=== PATIENT | female | born 1960 | race Caucasian/White ===

== ENCOUNTER 2018-06-15 07:56 | Inpatient (IN) ==
[2018-06-15] MEDS ORDERED: SODIUM CHLORIDE 0.9% 1,000 ML IV STA (08:22)
[2018-06-15] MEDS ORDERED: ONDANSETRON 4 MG/2 ML VIAL IV STA (08:22)
[2018-06-15] MEDS ORDERED: KETOROLAC 30 MG/1 ML VIAL IV STA (08:22)
[2018-06-15] MEDS ORDERED: HYDROmorphone 2 MG/1 ML VIAL IV STA ×2 (08:22→09:50)
[2018-06-15] MEDS ORDERED: AMPICILLIN/SULBACTAM 3,000 MG in SODIUM CHLORIDE 0.9% 100 ML IV STA (08:35)
[2018-06-15 08:59] LABS: Basophils # 0.1 10*3/uL (0.0-0.2); Basophils % 0.3 % (0.0-0.8); Eosinophils # 0.2 10*3/uL (0.0-0.87); Eosinophils % 0.8 % (0.00-10.9); Hematocrit 37.4 VOL% (35.7-47.0); Hemoglobin 11.7 GM/DL (12.0-16.0); Immature Granulocytes % 0.6 %; Immature Granulocytes Absolute 0.12 #; Lymphocytes # 2.3 10*3/uL (1.4-4.0); Lymphocytes % 12.1 % (21.3-54.2); Mean Corpuscular HGB Conc 31.3 GM/DL (32-36); Mean Corpuscular Hemoglobin 21 PG (27-34); Mean Corpuscular Volume 66.3 FL (87-102); Mean Platelet Volume 12.5 FL (9.6-12.0); Monocytes # 1.5 10*3/uL (0.11-0.8); Neutrophils # 14.5 10*3/uL (1.4-7.4); Neutrophils % 78.2 % (38.7-73.9); Platelet Count 239 T/CUMM (130-400); Red Blood Count 5.64 MC/CUMM (3.8-5.5); Red Cell Distribution Width 15.6 % (9.3-17.3); White Blood Count 18.6 T/CUMM (4-12)
[2018-06-15 09:12] LABS: Apearance,Urine Slightly Hazy (Clear); Bilirubin,Urine Negative (Negative); Blood, Urine Small mg/dL (Negative); Glucose,Urine (UA) Negative (Negative); Ketones,Urine Negative (Negative); Mucus,Urine Occasional /LPF (Occasional); Nitrite,Urine Negative (Negative); Protein,Urine Negative; RBC,Urine 11 /HPF (0-4); Squamous Epithelial Cell,Urine Occasional /HPF (0-10); Urine Color Yellow (Yellow); Urine Specific Gravity 1.016 (1.001-1.035); WBC,Urine 39 /HPF (0-6)
[2018-06-15 09:14] LABS: Hypochromasia 1+
[2018-06-15 09:15] LABS: Platelet Estimate Adequate
[2018-06-15 09:20] LABS: Calcium 8.9 MG/DL (8.5-10.1); Osmolality,Calculated 277.7 MOS/KG (273-304); Potassium 3.7 MMOL/L (3.5-5.1)
[2018-06-15 09:24] LABS: Albumin 3.9 G/DL (3.4-5.0); Bilirubin,Direct 0.35 MG/DL (0.0-0.20); Bilirubin,Indirect 1.1 MG/DL (0.0-1.0); Bilirubin,Total 1.4 MG/DL (0.2-1.0); Total Protein 7.4 G/DL (6.4-8.3)
[2018-06-15] MEDS: ONDANSETRON 4 MG/2 ML VIAL IV PRN ×2 (12:54→19:38)
[2018-06-15] MEDS: SODIUM CHLORIDE 0.9% 1,000 ML IV SCH ×2 (12:54→21:03)
[2018-06-15] MEDS: AMPICILLIN/SULBACTAM 3,000 MG in SODIUM CHLORIDE 0.9% 100 ML IV SCH ×2 (14:57→20:59)
[2018-06-15] MEDS: HYDROmorphone 2 MG/1 ML VIAL IV PRN ×2 (15:45→19:41)
[2018-06-15] MEDS: ACETAMINOPHEN 325 MG TABLET PO PRN (19:43)
[2018-06-15] MEDS: DOCUSATE SODIUM 100 MG CAPSULE PO SCH (20:56)
[2018-06-15] MEDS: TEMAZEPAM 15 MG CAPSULE PO SCH (20:56)
[2018-06-15] MEDS: NORTRIPTYLINE 10 MG CAPSULE PO SCH (20:56)
[2018-06-16] MEDS: HYDROmorphone 2 MG/1 ML VIAL IV PRN ×3 (01:18→20:24)
[2018-06-16] MEDS: ONDANSETRON 4 MG/2 ML VIAL IV PRN ×3 (01:20→20:26)
[2018-06-16] MEDS: AMPICILLIN/SULBACTAM 3,000 MG in SODIUM CHLORIDE 0.9% 100 ML IV SCH ×4 (02:36→20:27)
[2018-06-16 04:54] LABS: Hemoglobin 8.2 GM/DL (12.0-16.0); Mean Corpuscular HGB Conc 30.4 GM/DL (32-36); Mean Corpuscular Hemoglobin 21 PG (27-34); Mean Corpuscular Volume 68.4 FL (87-102); Red Blood Count 3.95 MC/CUMM (3.8-5.5); Red Cell Distribution Width 15.1 % (9.3-17.3); White Blood Count 11.5 T/CUMM (4-12)
[2018-06-16 04:55] LABS: Basophils % 0.3 % (0.0-0.8); Eosinophils # 0.2 10*3/uL (0.0-0.87); Immature Granulocytes % 0.4 %; Immature Granulocytes Absolute 0.05 #; Lymphocytes # 1.9 10*3/uL (1.4-4.0); Lymphocytes % 16.3 % (21.3-54.2); Monocytes # 0.9 10*3/uL (0.11-0.8); Monocytes % 7.7 % (1.7-12.7); Neutrophils # 8.4 10*3/uL (1.4-7.4); Neutrophils % 73.3 % (38.7-73.9); Platelet Count 190 T/CUMM (130-400)
[2018-06-16] MEDS: SODIUM CHLORIDE 0.9% 1,000 ML IV SCH ×2 (07:53→17:04)
[2018-06-16] MEDS: ACETAMINOPHEN 325 MG TABLET PO PRN (09:10)
[2018-06-16] MEDS: LACTOBACILLUS ACIDOPHILUS/BULGARICUS CAPLET PO SCH (09:11)
[2018-06-16] MEDS: PANTOPRAZOLE 40 MG TABLET PO SCH (09:11)
[2018-06-16] MEDS: FOLIC ACID 1 MG TABLET PO SCH (09:11)
[2018-06-16] MEDS: ALPRAZolam 0.5 MG TABLET PO SCH ×2 (09:11→23:01)
[2018-06-16] MEDS: ROSUVASTATIN 10 MG TABLET PO SCH (09:11)
[2018-06-16] MEDS: ATENOLOL 50 MG TABLET PO SCH (09:12)
[2018-06-16] MEDS: DOCUSATE SODIUM 100 MG CAPSULE PO SCH ×2 (09:12→20:30)
[2018-06-16] MEDS ORDERED: HydrOXYzine PAMOATE 25 MG CAPSULE PO PRN (11:03)
[2018-06-16] MEDS: KETOROLAC 30 MG/1 ML VIAL IV SCH ×2 (11:27→23:02)
[2018-06-16] MEDS: TEMAZEPAM 15 MG CAPSULE PO SCH (20:30)
[2018-06-16] MEDS: NORTRIPTYLINE 10 MG CAPSULE PO SCH (20:30)
[2018-06-17] MEDS: ACETAMINOPHEN 325 MG TABLET PO PRN (02:34)
[2018-06-17] MEDS: AMPICILLIN/SULBACTAM 3,000 MG in SODIUM CHLORIDE 0.9% 100 ML IV SCH ×4 (02:35→20:33)
[2018-06-17] MEDS: SODIUM CHLORIDE 0.9% 1,000 ML IV SCH ×2 (03:00→12:55)
[2018-06-17] MEDS: ROSUVASTATIN 10 MG TABLET PO SCH (09:05)
[2018-06-17] MEDS: ATENOLOL 50 MG TABLET PO SCH (09:05)
[2018-06-17] MEDS: PANTOPRAZOLE 40 MG TABLET PO SCH (09:05)
[2018-06-17] MEDS: FOLIC ACID 1 MG TABLET PO SCH (09:06)
[2018-06-17] MEDS: ALPRAZolam 0.5 MG TABLET PO SCH ×2 (09:06→20:48)
[2018-06-17] MEDS: DOCUSATE SODIUM 100 MG CAPSULE PO SCH ×2 (09:06→20:31)
[2018-06-17] MEDS: LACTOBACILLUS ACIDOPHILUS/BULGARICUS CAPLET PO SCH (10:23)
[2018-06-17] MEDS ORDERED: KETOROLAC 30 MG/1 ML VIAL IV ONE ×2 (11:27→23:28)
[2018-06-17 11:53] LABS: Basophils % 0.2 % (0.0-0.8); Eosinophils # 0.4 10*3/uL (0.0-0.87); Eosinophils % 4.3 % (0.00-10.9); Hemoglobin 7.7 GM/DL (12.0-16.0); Immature Granulocytes % 0.6 %; Immature Granulocytes Absolute 0.05 #; Lymphocytes # 1.4 10*3/uL (1.4-4.0); Lymphocytes % 16.6 % (21.3-54.2); Mean Corpuscular HGB Conc 30.8 GM/DL (32-36); Mean Corpuscular Hemoglobin 21 PG (27-34); Mean Corpuscular Volume 68.1 FL (87-102); Mean Platelet Volume 11.9 FL (9.6-12.0); Monocytes # 0.5 10*3/uL (0.11-0.8); Monocytes % 6.5 % (1.7-12.7); Neutrophils # 5.9 10*3/uL (1.4-7.4); Neutrophils % 71.8 % (38.7-73.9); Platelet Count 192 T/CUMM (130-400); Red Blood Count 3.67 MC/CUMM (3.8-5.5); Red Cell Distribution Width 15.1 % (9.3-17.3); White Blood Count 8.2 T/CUMM (4-12)
[2018-06-17] MEDS: HYDROmorphone 2 MG/1 ML VIAL IV PRN (20:26)
[2018-06-17] MEDS: ONDANSETRON 4 MG/2 ML VIAL IV PRN (20:30)
[2018-06-17] MEDS: TEMAZEPAM 15 MG CAPSULE PO SCH (20:32)
[2018-06-17] MEDS: NORTRIPTYLINE 10 MG CAPSULE PO SCH (20:40)
[2018-06-18] MEDS: AMPICILLIN/SULBACTAM 3,000 MG in SODIUM CHLORIDE 0.9% 100 ML IV SCH ×2 (03:11→09:44)
[2018-06-18 07:45] VITALS: BP 120/79
[2018-06-18 07:49] LABS: Ferritin 286.8 ng/ml (8-252)
[2018-06-18] MEDS ORDERED: POLYETHYLENE GLYCOL POWDER 17 GM PACK PO SCH (09:00)
[2018-06-18] MEDS: ROSUVASTATIN 10 MG TABLET PO SCH (09:43)
[2018-06-18] MEDS: DOCUSATE SODIUM 100 MG CAPSULE PO SCH (09:43)
[2018-06-18] MEDS: LACTOBACILLUS ACIDOPHILUS/BULGARICUS CAPLET PO SCH (09:43)
[2018-06-18] MEDS: ALPRAZolam 0.5 MG TABLET PO SCH (09:43)
[2018-06-18] MEDS: FOLIC ACID 1 MG TABLET PO SCH (09:43)
[2018-06-18] MEDS: ATENOLOL 50 MG TABLET PO SCH (09:43)
[2018-06-18] MEDS: PANTOPRAZOLE 40 MG TABLET PO SCH (09:47)
== END 2018-06-18 10:45 | disposition home or self-care (01) | DRG 392 ==
LOC: N.ED 07:56 → N.EDINP 09:54 → N.5E 12:38
PROVIDERS: ADMIT Family Medicine; ATTEND Family Medicine